=== PATIENT | male | born 1940 | race Caucasian/White ===

== ENCOUNTER 2019-12-15 20:14 | Emergency (ER) | payer OTHER ==
[2019-12-15 20:22] VITALS: BP 110/65; PULSE 76; TEMP 98.4; BMI 24.0
--- NOTE | 2019-12-15 20:48 | PDOC ---
History of Present Illness - General Chief Complaint: Urinary Problem Stated Complaint: UTI Time Seen by Provider: 12/15/19 20:47 History Source: Patient Exam Limitations: No Limitations - History of Present Illness Initial Comments: 12/15/19 21:09 HPI: This is a 79 y/o male with a PMH of HLD presenting to the ED from [facility] following 2 days of dysuria, increased bladder pressure, and increased frequency. The patient also reports that he had a fever and chills that began last night. His home temp this morning was 100.3 and at [facility] it was 101.7. He admits to decreased appetite and fatigue, but denies N/V, abdominal pain, chest pain, or SOB. Has previously had UTI's many years ago, although nothing recently. ROS: GENERAL/CONSTITUTIONAL: Yes fever/chills. Yes weakness. HEAD, EYES, EARS, NOSE AND THROAT: No change in vision. No sore throat. CARDIOVASCULAR: No chest pain or shortness of breath. RESPIRATORY: No cough, wheezing, or hemoptysis. GASTROINTESTINAL: No nausea, vomiting GENITOURINARY: Yes dysuria and increased frequency. MUSCULOSKELETAL: No joint or muscle swelling or pain. No back pain. SKIN: No rash NEUROLOGIC: No headache, vertigo HEMATOLOGIC/LYMPHATIC: No anemia, easy bleeding, or history of blood clots. PMH: HLD PSx: Denied Social Hx: Denied tobacco. Occasional etoh. Meds: See nurse note Allergies: KNDA PE: GENERAL: Awake, alert, and fully oriented, in no acute distress. Non-toxic appea ring and conversational HEAD: No signs of trauma EYES: PERRLA, EOMI, sclera anicteric, conjunctiva clear NECK: Normal ROM, supple, no lymphadenopathy, JVD, or masses LUNGS: Breath sounds equal, clear to auscultation bilaterally. No wheezes, and no crackles HEART: Regular rate and rhythm, normal S1 and S2, no murmurs, rubs or gallops ABDOMEN: Soft, nontender, normoactive bowel sounds. No guarding, no rebound. No masses EXTREMITIES: Normal range of motion, no edema. No clubbing or cyanosis. No cords, erythema, or tenderness NEUROLOGICAL: Cranial nerves II through XII grossly intact. Normal speech, normal gait MDM: 12/15/19 21:12 This is a 79 y/o male with a PMH of HLD presenting to the ED from [facility] following 2 days of dysuria, increased bladder pressure, and increased frequency. The patient also reports that he had a fever and chills that began last night. His home temp this morning was 100.3 and at [facility] it was 101.7. He admits to decreased appetite and fatigue, but denies N/V, abdominal pain, chest pain, or SOB. Has previously had UTI's many years ago, although nothing recently. - Patient appears non-toxic. No tenderness to palpation in abdomen and no CVA tenderness - Patient reports UTI symptoms - dysuria and increased frequency - Patient is not tachycardic or hypotensive. Afebrile in ED ddx: cystitis, pyelonephritis, prostatitis - Will repeat CBC, CMP, UA and culture Labs significant for: - WBC 14.3k - UA 1+ leukocyte esterase, 577 WBC's, 20 bacteria - Patient remained afebrile and stable throughout hospital stay. - Will d/c with Bactrim b.i.d. x10 days and follow-up Past History - Medical History Allergies/Adverse Reactions: Allergies Allergy/AdvReac Type Severity Reaction Status Date / Time No Known Allergies Allergy Verified 12/15/19 20:22 Home Medications: Ambulatory Orders Sulfamethoxazole/Trimethoprim [Bactrim Ds -] 1 tab PO BID #20 tablet 12/15/19 Sulfamethoxazole/Trimethoprim [Bactrim Ds -] 1 tab PO BID #20 tablet 12/15/19 COPD: No - Psycho-Social/Smoking History Smoking History: Never smoked - Substance Abuse Hx (Audit-C & DAST Scrn) How often the patient has a drink containing alcohol: 2-3 times / week Score: In Men: 4 or > Positive; In Women: 3 or > Positive: 3 Screen Result (Pos requires Nsg. Audit-10AR): Negative *Physical Exam - Vital Signs Last Vital Signs Temp Pulse Resp BP Pulse Ox 98.4 F 76 18 110/65 97 12/15/19 20:19 12/15/19 20:19 12/15/19 20:19 12/15/19 20:19 12/15/19 20:19 ED Treatment Course - LABORATORY CBC & Chemistry Diagram: 12/15/19 21:50 12/15/19 21:50 Discharge - Discharge Information Problems reviewed: Yes Clinical Impression/Diagnosis: UTI (urinary tract infection) Qualifiers: Urinary tract infection type: acute cystitis Hematuria presence: without hematuria Qualified Code(s): N30.00 - Acute cystitis without hematuria Condition: Stable Disposition: HOME - Admission No - Additional Discharge Information Prescriptions: Sulfamethoxazole/Trimethoprim [Bactrim Ds -] 1 tab PO BID #20 tablet Sulfamethoxazole/Trimethoprim [Bactrim Ds -] 1 tab PO BID #20 tablet - Follow up/Referral Referrals: Mecca Narvaez MD [Primary Care Provider] - - Patient Discharge Instructions Patient Printed Discharge Instructions: DI for Urinary Tract Infection (UTI), DI for Acute Prostatitis Additional Instructions: You came into the emergency department because of a possible UTI. We did find bacteria in your urine, and gave you one dose of antibiotics in the ED. We are sending 10 days of Bactrim to your pharmacy. If you still have pain after the 10 days, you might have prostatitis instead of a UTI. Please follow-up with your primary care provider. You can take tylenol as needed for fever. You can take 600mg every 6 hours. Please return to the ED if you have any new or worsening symptoms. Return if you experience a fever above 103.5 not controlled with tylenol, have nausea/vomiting, or are unable to urinate. - Post Discharge Activity
--- NOTE | 2019-12-15 21:28 | PDOC ---
Attending Attestation - Resident Resident Name: Adeline Guevara - ED Attending Attestation I have performed the following: I have examined & evaluated the patient, The case was reviewed & discussed with the resident, I agree w/resident's findings & plan - HPI HPI: 12/16/19 20:49 This is a 79 y/o male with a PMH of HLD presenting to the ED from [facility] following 2 days of dysuria, increased bladder pressure, and increased frequency. The patient also reports that he had a fever and chills that began last night. His home temp this morning was 100.3 and at [facility] it was 101.7. He admits to decreased appetite and fatigue, but denies N/V, abdominal pain, chest pain, or SOB. Has previously had UTI's many years ago, although nothing recently. Pt was sent to us from [facility] to r/o urosepsis - however, pt looks great and prob will do fine with outpatient course of ABX. - Physicial Exam PE: 12/16/19 20:49 Agree with resident exam - Medical Decision Making 12/16/19 20:50 - Patient appears non-toxic. No tenderness to palpation in abdomen and no CVA tenderness - Patient reports UTI symptoms - dysuria and increased frequency - Patient is not tachycardic or hypotensive. Afebrile in ED ddx: cystitis, pyelonephritis, prostatitis - Will repeat CBC, CMP, UA and culture Labs significant for: - WBC 14.3k - UA 1+ leukocyte esterase, 577 WBC's, 20 bacteria - Patient remained afebrile and stable throughout hospital stay. - Will d/c with Bactrim b.i.d. x10 days and follow-up 12/16/19 20:50 Pt stable to go home. No need for further admission. Discharge - Discharge Information Problems reviewed: Yes Clinical Impression/Diagnosis: UTI (urinary tract infection) Qualifiers: Urinary tract infection type: acute cystitis Hematuria presence: without hematuria Qualified Code(s): N30.00 - Acute cystitis without hematuria Condition: Stable Disposition: HOME - Additional Discharge Information Prescriptions: Sulfamethoxazole/Trimethoprim [Bactrim Ds -] 1 tab PO BID #20 tablet Sulfamethoxazole/Trimethoprim [Bactrim Ds -] 1 tab PO BID #20 tablet - Follow up/Referral Referrals: Mecca Narvaez MD [Primary Care Provider] - - Patient Discharge Instructions Patient Printed Discharge Instructions: DI for Urinary Tract Infection (UTI), D I for Acute Prostatitis Additional Instructions: You came into the emergency department because of a possible UTI. We did find bacteria in your urine, and gave you one dose of antibiotics in the ED. We are sending 10 days of Bactrim to your pharmacy. If you still have pain after the 10 days, you might have prostatitis instead of a UTI. Please follow-up with your primary care provider. You can take tylenol as needed for fever. You can take 600mg every 6 hours. Please return to the ED if you have any new or worsening symptoms. Return if you experience a fever above 103.5 not controlled with tylenol, have nausea/vomiting, or are unable to urinate. - Post Discharge Activity
[2019-12-15] MEDS ORDERED: SODIUM CHLORIDE 1,000 ML IV SCH (21:45)
[2019-12-15 21:48] LABS: EPI CELLS 2 /uL (0-25.1); HYALINE CASTS 43 /uL (0-3.1); URINE APPEARANCE CLOUDY; URINE BACTERIA 20 /uL (0-1359); URINE BILIRUBIN 1+ (NEGATIVE); URINE COLOR ORANGE; URINE GLUCOSE (UA) NEGATIVE (NEGATIVE); URINE KETONE TRACE (NEGATIVE); URINE LEUK ESTERASE 1+ (NEGATIVE); URINE NITRITE NEGATIVE (NEGATIVE); URINE PROTEIN 2+ (NEGATIVE); URINE RBC 17 /uL (0-23.9); URINE WBC 577 /uL (0-25.8)
[2019-12-15] MEDS ORDERED: SULFAMETHOXAZOLE/TRIMETHOPRIM 800MG/160MG D.S. TABLET PO ONE (21:54)
[2019-12-15] MEDS ORDERED: PHENAZOPYRIDINE HCL 100 MG TABLET (FP) PO ONE (21:56)
[2019-12-15] MEDS ORDERED: SULFAMETHOXAZOLE/TRIMETHOPRIM 800MG/160MG D.S. TABLET ONE (21:58)
[2019-12-15] MEDS ORDERED: PHENAZOPYRIDINE HCL 100 MG TABLET (FP) ONE (22:01)
[2019-12-15 22:13] LABS: BASO % 0.3 % (0-2.0); EOS % 0.1 % (0-4.5); HEMATOCRIT 40.4 % (35.4-49); HEMOGLOBIN 13.8 GM/dL (11.7-16.9); LYMPH % 9.3 % (8-40); MCH 30.2 pg (25.7-33.7); MCHC 34.2 g/dl (32.0-35.9); MEAN CELL VOLUME 88.3 fl (80-96); MONO % 7.4 % (3.8-10.2); NEUT % 82.9 % (42.8-82.8); PLATELET COUNT 212 K/MM3 (134-434); RBC 4.57 M/mm3 (4.00-5.60); RDW 13.6 % (11.9-15.9); WHITE BLOOD COUNT 14.3 K/mm3 (4.0-10.0)
[2019-12-15 22:33] LABS: ALBUMIN 3.4 g/dl (3.4-5.0); BILIRUBIN,TOTAL 1.8 mg/dL (0.2-1); BLOOD UREA NITROGEN 18.7 mg/dL (7-18); CALCIUM 8.9 mg/dL (8.5-10.1); CREATININE 1.2 mg/dL (0.55-1.3); POTASSIUM 3.8 mmol/L (3.5-5.1); TOT PROT 7.1 g/dl (6.4-8.2)
[2019-12-15 23:58] LABS: URINE CRYSTALS 0 /hpf
== END 2019-12-15 23:38 | disposition home or self-care (01) ==
LOC: JER 20:14
DX: N30.00 Acute cystitis without hematuria (principal)
CPT/HCPCS: 36415; 80053; 81003; 85025; 87086; 99284-25